=== PATIENT | male | born 1990 | race Caucasian/White ===

== ENCOUNTER 2019-05-21 12:00 | Emergency (ER) | payer OTHER ==
[2019-05-21 12:24] VITALS: BP 152/79
--- NOTE | 2019-05-21 13:16 | ED ---
GI/ HPI - HPI Summary HPI Summary: 29 yr old male with the complaint of sore throat for about a week. He also complains of increased frequency of urination and some occasional dysuria this week. No fever or chills. No scrotal pain or swelling. He is sexually active. No NVD. No other complaints. No discharge. - History of Current Complaint Chief Complaint: UCGU Time Seen by Provider: 05/21/19 12:44 Stated Complaint: PERSONAL Pain Intensity: 0 - Allergy/Home Medications Allergies/Adverse Reactions: Allergies Allergy/AdvReac Type Severity Reaction Status Date / Time cefaclor [From Ceclor] Allergy Intermediate Rash Verified 05/21/19 12:21 PMH/Surg Hx/FS Hx/Imm Hx Infectious Disease History: No Infectious Disease History: Denies: Traveled Outside the [place] in Last 30 Days - Family History Known Family History: Positive: None - Social History Occupation: Employed Full-time Alcohol Use: Daily Substance Use Type: Reports: None Smoking Status (MU): Former Smoker Type: Smokeless Tobacco Amount Used/How Often: 1/3 can per day Review of Systems Constitutional: Negative Positive: Sore Throat Positive: dysuria, frequency All Other Systems Reviewed And Are Negative: Yes Physical Exam Triage Information Reviewed: Yes Vital Signs On Initial Exam: Initial Vitals Temp Pulse Resp BP Pulse Ox 98.0 F 79 14 152/79 100 05/21/19 12:22 05/21/19 12:22 05/21/19 12:22 05/21/19 12:22 05/21/19 12:22 Vital Signs Reviewed: Yes Appearance: Positive: Well-Appearing, No Pain Distress Skin: Positive: Warm, Skin Color Reflects Adequate Perfusion Head/Face: Positive: Normal Head/Face Inspection Eyes: Positive: EOMI ENT: Positive: Normal ENT inspection Neck: Positive: Nontender Respiratory/Lung Sounds: Positive: Clear to Auscultation, Breath Sounds Present Cardiovascular: Positive: RRR. Negative: Murmur Abdomen Description: Negative: Distended Musculoskeletal: Positive: Strength/ROM Intact Neurological: Positive: Sensory/Motor Intact, Alert, Oriented to Person Place, Time, CN Intact II-III, Normal Gait, Speech Normal Psychiatric: Positive: Normal Diagnostics - Vital Signs Vital Signs Temp Pulse Resp BP Pulse Ox 05/21/19 12:22 98.0 F 79 14 152/79 100 - Laboratory Lab Results: Lab Results 05/21/19 Range/Units 13:01 POC Urine Color Yellow POC Urine Clarity Clear POC Urine pH 5.0 (5-9) POC Ur Specif Pollock 1.010 (1.010-1.030) POC Urine Protein Negative (Negative) POC Ur Glucose (UA) Negative (Negative) POC Urine Ketones Trace (Negative) POC Urine Blood Negative (Negative) POC Urine Nitrite Negative (Negative) POC Urine Bilirubin Negative (Negative) POC Urine Urobilinogen 0.2 (Negative) POC U Leukocyte Esteras Negative (Negative) Lab Statement: Any lab studies that have been ordered have been reviewed, and results considered in the medical decision making process. GIGU Course/Dx - Course Course Of Treatment: 29 yr old male with some urinary symptoms. Sore throat. Rapid strep negative. - Diagnoses Provider Diagnoses: Dysuria, Pharyngitis Discharge ED - Sign-Out/Discharge Documenting (check all that apply): Patient Departure All imaging exams completed and their final reports reviewed: No Studies - Discharge Plan Condition: Good Disposition: HOME Patient Education Materials: Pharyngitis (ED), Dysuria (ED) Referrals: No Primary Care Phys,NOPCP [Primary Care Provider] - [facility] [place] [facility] [Outside] - 2 Days - Billing Disposition and Condition Condition: GOOD Disposition: Home
[2019-05-21 20:49] LABS: HIV 4th Generation Nonreactive (Nonreactive)
[2019-05-22 11:41] LABS: Chlamydia trachomatis NAA Positive (Negative); Neisseria gonorrhoeae (GC) NAA Negative (Negative)
--- NOTE | 2019-05-22 16:12 | UC ---
- Progress Note Progress Note: Reviewed urine test from 05/21/19 -> + chlamydia (see result in [employer]). Reviewed medications / allergies. Rx e-scribed Doxycycline 100mg po bid x 10 days. RN to call pt. No sexual relations x 14 days to ensure sx free. Must seek medical attention for worse / new / recurrent sx. He will need to advise sexual contact(s) of dx, so that they can be evaluated / tx'd as indicated. Course/Dx - Diagnoses Provider Diagnoses: Dysuria, Pharyngitis Discharge ED - Sign-Out/Discharge Documenting (check all that apply): Post-Discharge Follow Up All imaging exams completed and their final reports reviewed: No Studies - Discharge Plan Condition: Good Disposition: HOME Prescriptions: DOXYcycline CAP(*) [DOXYcycline 100MG CAP(*)] 100 mg PO BID 10 Days #20 cap Patient Education Materials: Pharyngitis (ED), Dysuria (ED) Referrals: [facility] [place] [facility] [Outside] - 2 Days No Primary Care Phys,NOPCP [Primary Care Provider] - - Billing Disposition and Condition Condition: GOOD Disposition: Home
[2019-05-25 20:52] LABS: Trichomonas vaginalis SOURCE: Urine (Male Patient)
== END 2019-05-21 13:55 | disposition home or self-care (01) ==
LOC: UCCORT 12:00
DX: J02.9 Acute pharyngitis, unspecified (principal); R30.0 Dysuria; R35.0 Frequency of micturition; Z88.1 Allergy status to other antibiotic agents; Z87.891 Personal history of nicotine dependence
CPT/HCPCS: 36415; 81003; 86780; 87389; 87491; 87591; 87651; 87661; 99201; G0463

== ENCOUNTER 2019-06-02 16:47 | Emergency (ER) | payer OTHER ==
[2019-06-02 17:11] VITALS: BP 137/76
--- NOTE | 2019-06-02 17:25 | UC ---
Complaint Male HPI - HPI Summary HPI Summary: Pt presents with concern for dysuria, testicular pain that has not improved since being treated for chlamydia on 05/21/19 with doxycycline 100 mg PO q12h X 10 days. Pt states that he completed as directed but continues to feel pelvic pressure, dysuria and generalized testicular pain. - History of Current Complaint Chief Complaint: UCGU Stated Complaint: PERSONAL Time Seen by Provider: 06/02/19 16:59 Hx Obtained From: Patient Onset/Duration: Gradual Onset, Lasting Days, Still Present Timing: Constant Severity Initially: Mild Severity Currently: Mild Pain Intensity: 1 Location: Suprapubic Character: Burning, Constant Pressure Aggravating Factor(s): Voiding Associated Signs And Symptoms: Positive: Dysuria - Risk Factors Testicular Torsion: Negative - Allergies/Home Medications Allergies/Adverse Reactions: Allergies Allergy/AdvReac Type Severity Reaction Status Date / Time cefaclor [From [facility]] Allergy Intermediate Rash Verified 06/02/19 17:11 Home Medications: Home Medications NK [No Home Medications Reported] 06/02/19 [History Confirmed 06/02/19] PMH/Surg Hx/FS Hx/Imm Hx Previously Healthy: No - Surgical History Surgical History: None - Family History Known Family History: Positive: Cardiac Disease - Social History Occupation: Employed Full-time Lives: With Family Alcohol Use: Daily Substance Use Type: None Smoking Status (MU): Former Smoker Type: Smokeless Tobacco Amount Used/How Often: 1/3 can per day Have You Smoked in the Last Year: Yes - Immunization History Most Recent Tetanus Shot: 4 years ago Vaccination Up to Date: Yes Review of Systems All Other Systems Reviewed And Are Negative: Yes Constitutional: Positive: Negative Skin: Positive: Negative Eyes: Positive: Negative ENT: Positive: Negative Respiratory: Positive: Negative Cardiovascular: Positive: Negative Genitourinary: Positive: Dysuria, Frequency, Other - testicular discomfort Motor: Positive: Negative Neurovascular: Positive: Negative Musculoskeletal: Positive: Negative Neurological: Positive: Negative Psychological: Positive: Negative Is Patient Immunocompromised?: No Physical Exam - Summary Physical Exam Summary: Pt denies any lesions, sores or ulcerations on genital. Triage Information Reviewed: Yes Appearance: Well-Appearing Vital Signs: Initial Vital Signs Temp 98.2 F 06/02/19 17:07 Pulse 69 06/02/19 17:07 Resp 18 06/02/19 17:07 BP 137/76 06/02/19 17:07 Pulse Ox 100 06/02/19 17:07 Vital Signs Reviewed: Yes ENT Exam: Normal Dental Exam: Normal Neck exam: Normal Respiratory Exam: Normal Cardiovascular Exam: Normal Abdominal Exam: Normal Musculoskeletal Exam: Normal Neurological Exam: Normal Psychological Exam: Normal Skin Exam: Normal Complaint Male Course/Dx - Course Course Of Treatment: I discussed with the pt retreatment with azithromax and to retest for gc/ chlamydia nd urine culture. - Differential Dx/Diagnosis Differential Diagnosis/HQI/PQRI: Epididymitis, Urinary Tract Infection Provider Diagnosis: Urethritis, nonspecific Discharge ED - Sign-Out/Discharge Documenting (check all that apply): Patient Departure All imaging exams completed and their final reports reviewed: No Studies - Discharge Plan Condition: Stable Disposition: HOME Patient Education Materials: Nonspecific Urethritis in Men (ED) Referrals: No Primary Care Phys,NOPCP [Primary Care Provider] - [facility] [place] [facility] [Outside] - As Soon As Possible - Billing Disposition and Condition Condition: STABLE Disposition: Home
[2019-06-02] MEDS ORDERED: Azithromycin TAB* 250 MG PO ONE (17:42)
[2019-06-04 12:48] LABS: Chlamydia trachomatis NAA Negative (Negative); Neisseria gonorrhoeae (GC) NAA Negative (Negative)
== END 2019-06-02 18:00 | disposition home or self-care (01) ==
LOC: UCCORT 16:47
DX: N34.1 Nonspecific urethritis (principal); Z87.891 Personal history of nicotine dependence; Z88.1 Allergy status to other antibiotic agents
CPT/HCPCS: 81003; 87086; 87491; 87591; 99212; A9270-GY; G0463